=== PATIENT | female | born 1970 | race African-American/Black ===

== ENCOUNTER 2017-09-11 12:22 | Emergency (ER) | END 2017-09-11 17:15 | disposition home or self-care (01) ==

== ENCOUNTER 2018-08-06 14:37 | Emergency (ER) | payer OTHER ==
[~2018-08-06] VITALS: Wt 89.0 kg
[~2018-08-06 14:37] MED LIST: AMLO-147 PO
[2018-08-06 17:00] VITALS: BP 123/71; PULSE 75; RESP 18
[2018-08-06] MEDS ORDERED: CIPR500T4 PO (17:15)
[2018-08-06] MEDS ORDERED: METR500T PO (17:15)
[2018-08-06] MEDS ORDERED: FLUC150T PO (17:15)
--- NOTE | 2018-08-06 19:37 | ERD ---
ER Documentation Chief Complaint Chief Complaint STOOLS WITH BLOOD X 5 TODAY, NO AP HPI This is a 48-year-old female with no past medical history other than hypertension. The patient indicates that for the past 24 hours she has noticed blood present within her stools. She states it is a dark tarry color. She is had roughly 5 episodes of loose dark tarry stools today. She states she had mild abdominal cramping. She said no fevers or shaking or chills. She has no history of alcoholism and denies any hemoptysis or hematemesis. She said no recent travel or antibiotic use. She said no recent sick contacts. The patient denies any Pepto-Bismol use. The patient also indicates that she just completed her menstrual cycle ye . She does have a history of heavy vaginal bleeding during her menstrual cycles. She indicates she uses NSAIDs only on the first day of her cycle. ROS All systems reviewed and are negative except as per history of present illness. Medications Home Meds Active Scripts Fluconazole* (Diflucan*) 150 Mg Tablet, 150 MG PO DAILY for 2 Days, TAB Prov:ADDIE CUEVAS MD 08/06/18 Metronidazole* (Flagyl*) 500 Mg Tablet, 500 MG PO BID for 10 Days, TAB Prov:ADDIE CUEVAS MD 08/06/18 Ciprofloxacin Hcl* (Ciprofloxacin Hcl*) 500 Mg Tablet, 500 MG PO BID, #20 TAB Prov:ADDIE CUEVAS MD 08/06/18 Amlodipine Besylate* (Amlodipine Besylate*) 10 Mg Tablet, 10 MG PO DAILY, #30 T AB Prov:JOSHUA CONCEPCION MD 09/11/17 Reported Medications Amlodipine Besylate* (Amlodipine Besylate*) 10 Mg Tablet, 10 MG PO DAILY, #30 TAB 09/11/17 Allergies Allergies: Coded Allergies: No Known Allergy (Unverified , 09/11/17) PMhx/Soc History of Surgery: Yes () Anesthesia Reaction: No Hx Neurological Disorder: No Hx Respiratory Disorders: No Hx Cardiac Disorders: Yes (HTN) Hx Psychiatric Problems: No Hx Miscellaneous Medical Probl: No Hx Alcohol Use: No Hx Substance Use: No Hx Tobacco Use: No Smoking Status: Never smoker Physical Exam Vitals Vital Signs Date Temp Pulse Resp B/P (MAP) Pulse Ox O2 O2 Flow FiO2 Time Delivery Rate 08/06/18 75 18 123/71 Room Air 17:00 (88) 08/06/18 98.1 85 18 164/85 99 14:41 (111) Physical Exam Constitutional:Well-developed. Well-nourished. HEENT:Normocephalic. Atraumatic.Pupils were equal round reactive to light. Moist mucous membranes.No tonsillar exudates. Neck: No nuchal rigidity. No lymphadenopathy. No posterior cervical spine tenderness or step-offs. Respiratory: Not using accessory muscles of respiration.Lungs were clear to auscultation bilaterally. No rhonchi. No rales. No wheezing. Cardiovascular: Regular rate regular rhythm.No murmurs. No rubs were appreciated.S1, S2 normal. Distal pulses are palpable 2+ bilaterally. GI: Abdomen was soft. Mild left lower quadrant tenderness. Non Distended. No pulsatile abdominal masses or bruits. No rebound. No guarding. Bowel sounds were present and normal. RECTAL: No gross blood per rectum. No hemorrhoids. Fecal occult blood test was negative. Muscle skeletal: Full range of motion of both the upper and lower extremities bilaterally.Normal muscle tone.No assymetrical calf tenderness or swelling. Skin: No petechia, no purpura. No lesions on the palms or the soles of the feet. No maculopapular rash. NEURO: Patient was alert, awake, orientated x3.No facial droop. Gait observed and normal with no ataxia.Speech had regular rate and rhythm. No focal neurological deficits. Result Diagram: 08/06/18 1525 08/06/18 1525 Results 24 hrs Laboratory Tests Test 08/06/18 15:25 08/06/18 16:21 White Blood Count 7.1 10^3/ul Red Blood Count 3.66 10^6/ul Hemoglobin 8.6 g/dl Hematocrit 29.2 % Mean Corpuscular Volume 79.8 fl Mean Corpuscular Hemoglobin 23.5 pg Mean Corpuscular Hemoglobin Concent 29.5 g/dl Red Cell Distribution Width 15.6 % Platelet Count 298 10^3/UL Mean Platelet Volume 9.0 fl Immature Granulocytes % 0.300 % Neutrophils % 71.1 % Lymphocytes % 19.6 % Monocytes % 7.7 % Eosinophils % 1.0 % Basophils % 0.3 % Nucleated Red Blood Cells % 0.0 /100WBC Immature Granulocytes # 0.020 10^3/ul Neutrophils # 5.1 10^3/ul Lymphocytes # 1.4 10^3/ul Monocytes # 0.6 10^3/ul Eosinophils # 0.1 10^3/ul Basophils # 0.0 10^3/ul Nucleated Red Blood Cells # 0.0 10^3/ul Prothrombin Time 13.7 Sec Prothrombin Time Ratio 1.1 INR International Normalized Ratio 1.04 Activated Partial Thromboplast Time 33.0 Sec Sodium Level 139 mmol/L Potassium Level 3.7 mmol/L Chloride Level 104 mmol/L Carbon Dioxide Level 27 mmol/L Anion Gap 8 Blood Urea Nitrogen 11 mg/dl Creatinine 0.66 mg/dl Est Glomerular Filtrat Rate mL/min > 60 mL/min Glucose Level 97 mg/dl Calcium Level 9.0 mg/dl Total Bilirubin 0.7 mg/dl Direct Bilirubin 0.00 mg/dl Indirect Bilirubin 0.7 mg/dl Aspartate Amino Transf (AST/SGOT) 19 IU/L Alanine Aminotransferase (ALT/SGPT) 18 IU/L Alkaline Phosphatase 84 IU/L Total Protein 7.9 g/dl Albumin 4.2 g/dl Globulin 3.70 g/dl Albumin/Globulin Ratio 1.13 Stool Occult Blood NEGATIVE Procedures/MDM The patient presented to the emergency department with a presentation of melanotic stools and concern for gastrointestinal bleeding. My differential diagnosis included but was not limited to peptic ulcer disease, gastric or esophageal erosions, gastritis, esophageal varices, Tori-Munguia tear, tumor or arteriovenous malformations. The patient was anemic with hemoglobin of 8.9. However the patient did just complete her menstrual cycle and states that she does have a history of anemia. She been instructed to take iron supplements but stated she did not do this as this exacerbates her constipation. Due to the location of the patient's abdominal pain I did obtain a CT scan of the abdomen with IV contrast that was reviewed by the radiologist as well as myself and indicate the followin. Focal region of bowel wall thickening with adjacent fat stranding in the mid ascending colon, may represent focal colitis or diverticulitis. No evidence of abscess or free air. 2. Sigmoid diverticulosis. 3. Scattered renal lesions of varying sizes and densities, as above. These may represent a mixture of simple and complex cysts however solid renal lesions are not ruled out on this noncontrast CT. Consider renal mass protocol CT or MRI for further evaluation. The patient has good outpatient follow-up. She states she felt comfortable being discharged and will follow up with her primary care physician. I did provide copies of her ancillary laboratory work as well as her CT scan. The patient will be discharged home with ciprofloxacin and Flagyl to treat suspected diverticulitis. The patient was discharged home in fair condition. They were instructed to return to the emergency department at any time if there was any worsening of their condition. The patient stated they would follow up with their PCP in the next 24-48 hours to initiate a suitable medication regimen under the care of their PCP as well as to allow their PCP to monitor any drug reactions. The patient was discharged home with prescriptions after they gave informed consent to the new medication. They were also fully informed by myself on the adverse effects and adverse drug interactions in order to provide adequate safeguards to prevent possible adverse reactions to medications. Departure Diagnosis: Primary Impression: Diverticulitis Condition: Fair Patient Instructions: Diverticulitis ADDIE CUEVAS MD Aug 06, 2018 19:37
== END 2018-08-06 17:49 | disposition home or self-care (01) ==
LOC: E/R 14:37
DX: K57.30 Diverticulosis of large intestine without perforation or abscess without bleeding (principal); I10 Essential (primary) hypertension
CPT/HCPCS: 74176; 80053; 82270; 85025; 85610; 85730; Z7502

== ENCOUNTER 2018-11-20 16:06 | Emergency (ER) | payer SELFPAY ==
[~2018-11-20] VITALS: Wt 84.1 kg
[~2018-11-20 16:06] MED LIST changes: +CIPR500T4 PO; +FLUC150T PO; +METR500T PO
[2018-11-20 16:14] VITALS: BP 151/88; PULSE 85; RESP 20
== END 2018-11-21 16:58 | disposition left against medical advice (07) ==
LOC: FTE 16:06
DX: Z53.21 Procedure and treatment not carried out due to patient leaving prior to being seen by health care provider (principal)